=== PATIENT | female | born 1960 | race Caucasian/White ===

== ENCOUNTER 2022-02-06 11:39 | Outpatient (CLI) | payer BC | END 2022-02-06 11:40 | disposition home or self-care (01) | LOC: CSHRAD 11:39 | PROVIDERS: ATTEND Family Medicine | DX: M54.50 Low back pain, unspecified (principal); M47.816 Spondylosis without myelopathy or radiculopathy, lumbar region | CPT/HCPCS: 72100 ==

== ENCOUNTER 2022-10-03 10:14 | Outpatient (CLI) | payer BC | END 2022-10-03 10:15 | disposition home or self-care (01) | LOC: CSHMAMMO 10:14 | PROVIDERS: ATTEND Family Medicine | DX: Z12.31 Encounter for screening mammogram for malignant neoplasm of breast (principal) | CPT/HCPCS: 77063; 77067 ==

== ENCOUNTER 2024-01-11 10:17 | Outpatient (CLI) | payer OTHER | END 2024-01-11 10:18 | disposition home or self-care (01) | LOC: CSHRAD 10:17 | PROVIDERS: ATTEND Orthopaedic Surgery | DX: M54.50 Low back pain, unspecified (principal); M47.816 Spondylosis without myelopathy or radiculopathy, lumbar region | CPT/HCPCS: 72100 ==